=== PATIENT | female | born 1955 | race Caucasian/White ===

== ENCOUNTER 2022-01-09 13:56 | Emergency (ER) | payer OTHER ==
[2022-01-09 14:37] VITALS: BP 128/79; PULSE 91; RESP 19; TEMP 98.3; BMI 25.6
[2022-01-09] MEDS ORDERED: ALBUTEROL SO4 2.5/IPRATROPIUM 0.5 INH SOL 3 ML VIAL.NEB. NEB ONE (15:24)
[2022-01-09] MEDS ORDERED: ALBUTEROL SO4 HFA INHALER IH ONE ×2 (15:28→16:08)
== END 2022-01-09 16:56 | disposition home or self-care (01) ==
LOC: JER 13:56
DX: J06.9 Acute upper respiratory infection, unspecified (principal)
CPT/HCPCS: 0241U-QW; 71046-TC-FY; 99284-25